=== PATIENT | male | born 1995 | race African-American/Black ===

== ENCOUNTER 2022-03-12 10:21 | Emergency (ER) | payer OTHER ==
[~2022-03-12] VITALS: Ht 180.3 cm; Wt 86.2 kg
--- NOTE | 2022-03-12 10:34 | NUR ---
BIBS, stated back pain lower right side, said he fell of skate board a few days ago & pain has gotten worse not better.
--- NOTE | 2022-03-12 10:56 | NUR ---
PT, VS= B/P = 119/61, RR = 19, HR = 66, o2 = 100 %. pt in room playing video games on cell phone. c/o of pain radiating in lower left side of back and up level 8 out of 0-10.
[2022-03-12] MEDS ORDERED: IBUPROFEN 400 MG TABLET PO ONE (11:00)
[2022-03-12] MEDS ORDERED: CYCLOBENZAPRINE 10 MG TABLET PO ONE (11:00)
[2022-03-12] MEDS ORDERED: CYCLOBENZAPRINE 10 MG TABLET ONE (11:03)
[2022-03-12] MEDS ORDERED: IBUPROFEN 400 MG TABLET ONE (11:04)
[2022-03-12] MEDS ORDERED: CYCL5TAB PO (12:00)
[2022-03-12] MEDS ORDERED: IBUP-1957 PO (12:00)
[2022-03-12 12:21] VITALS: BP 123/70
== END 2022-03-12 12:20 | disposition home or self-care (01) ==
LOC: ER 10:47
DX: S39.012A Strain of muscle, fascia and tendon of lower back, initial encounter (principal); S30.0XXA Contusion of lower back and pelvis, initial encounter; Z79.899 Other long term (current) drug therapy; V00.131A Fall from skateboard, initial encounter; Y93.51 Activity, roller skating (inline) and skateboarding; Y92.89 Other specified places as the place of occurrence of the external cause; Y99.8 Other external cause status

== ENCOUNTER 2023-08-18 12:17 | Emergency (ER) | payer OTHER ==
[~2023-08-18] VITALS: Ht 180.3 cm; Wt 81.6 kg
[~2023-08-18 12:17] MED LIST: CYCL5TAB PO; IBUP-1957 PO
[2023-08-18] MEDS ORDERED: dexaMETHasone SOD PHOSPHATE 10 MG/ML VIAL IV ONE (16:00)
[2023-08-18] MEDS ORDERED: VANCOMYCIN 1 GM in IV D5W 250 ML IV ONE (16:00)
[2023-08-18] MEDS ORDERED: CEFAZOLIN 2 GM in IV D5W 100 ML IV ONE (16:00)
[2023-08-18 16:37] LABS: BASOPHILS % (AUTO) 0.1 % (0.0-2.0); EOSINOPHILS % (AUTO) 0.2 % (0.0-6.0); HEMATOCRIT 41 % (39-51); HEMOGLOBIN 13.7 g/dL (13.5-17.5); LYMPHOCYTES % (AUTO) 16.7 % (20.0-44.0); MEAN CORPUSCULAR HEMOGLOBIN 30 PG (26.0-33.0); MEAN CORPUSCULAR HGB CONC 33 g/dl (31.0-36.0); MEAN CORPUSCULAR VOLUME 89 fL (80-96); MONOCYTES # (AUTO) 0.9 K/uL (0.1-1.30); MONOCYTES % (AUTO) 7.1 % (2.0-12.0); NEUTROPHILS # (AUTO) 9.1 K/uL (1.8-8.9); NEUTROPHILS % (AUTO) 75.9 % (43.0-81.0); PLATELET COUNT (AUTO) 211 K/uL (150-450); RED BLOOD CELL COUNT(AUTO) 4.61 MIL/uL (4.5-6.0); RED CELL DISTRIBUTION WIDTH 13.4 % (11.5-15.0)
[2023-08-18 16:53] LABS: CREATININE 1.2 mg/dL (0.6-1.3); POTASSIUM 3.4 mmol/L (3.5-5.1)
[2023-08-18 16:59] LABS: BILIRUBIN,DIRECT 0.2 mg/dL (0.0-0.2); BILIRUBIN,TOTAL 0.5 mg/dL (0.2-1.0); TOTAL PROTEIN, SERUM 8.2 g/dL (6.4-8.2)
[2023-08-18 17:06] LABS: LACTIC ACID 1.1 mmol/L (0.4-2.0)
[2023-08-18 17:10] LABS: INR 1.07 (0.91-1.10); PROTHROMBIN TIME 11.3 SECS (9.2-11.1)
[2023-08-18] MEDS ORDERED: IOHEXOL-300 100 ML VIAL IV ONE (17:13)
[2023-08-18] MEDS ORDERED: IV NS 0.9% 250 ML IV ONE (17:13)
[2023-08-18] MEDS ORDERED: BICT1TAB PO (17:53)
[2023-08-18] MEDS ORDERED: IBUP-1957 PO (19:09)
[2023-08-18] MEDS ORDERED: CEPH500C2 PO (19:09)
[2023-08-18] MEDS ORDERED: SULF1TAB48 PO (19:09)
[2023-08-18 19:24] VITALS: BP 123/78; TEMP 98.3; O2SAT 97
== END 2023-08-18 19:25 | disposition home or self-care (01) ==
LOC: ER 12:27
DX: M27.2 Inflammatory conditions of jaws (principal); K04.7 Periapical abscess without sinus; R51.9 Headache, unspecified; Z79.899 Other long term (current) drug therapy
CPT/HCPCS: 99285; 96365; 70487; 96375; 96368; 85025; 80048; 87040 ×2; 83605; 80076; 36415; 85730; J0690; J3370; J7060; J7030; J7050; Q9967

== ENCOUNTER 2024-07-03 12:40 | Emergency (ER) | payer OTHER ==
[~2024-07-03] VITALS: Ht 180.3 cm; Wt 79.4 kg
[~2024-07-03 12:40] MED LIST changes: +BICT1TAB PO; +CEPH500C2 PO; -CYCL5TAB PO; +SULF1TAB48 PO
[2024-07-03 13:09] VITALS: TEMP 98.2
[2024-07-03] MEDS ORDERED: KETOROLAC TROMETHAMINE INJ 30 MG/ML VIAL ONE (13:52)
[2024-07-03] MEDS: KETOROLAC TROMETHAMINE INJ 30 MG/ML VIAL IM ONE (13:57)
[2024-07-03] MEDS ORDERED: ACETAMINOPHEN 325 MG TABLET ONE (14:05)
[2024-07-03] MEDS: ACETAMINOPHEN 325 MG TABLET PO ONE (14:08)
[2024-07-03 14:11] LABS: APPEARANCE,URINE CLEAR (CLEAR); BILIRUBIN,URINE NEGATIVE (NEGATIVE); BLOOD, URINE NEGATIVE Ery/uL (NEGATIVE); COLOR,URINE YELLOW (YELLOW); KETONES,URINE NEGATIVE (NEGATIVE); LEUKOCYTE ESTERASE ,URINE NEGATIVE (NEGATIVE); NITRITE, URINE NEGATIVE (NEGATIVE); PH,URINE 6.5 (5.0-8.0); PROTEIN,URINE NEGATIVE (NEGATIVE); UGLUCOSE NEGATIVE (NEGATIVE); UROBILINOGEN,URINE 0.2 EU/dL (0.2)
[2024-07-03] MEDS ORDERED: LEVO500T90 PO (15:45)
[2024-07-03] MEDS ORDERED: LIDOCAINE /MPF 1% VIAL 5 ML VIAL ONE (15:53)
[2024-07-03] MEDS ORDERED: CEFTRIAXONE 500 MG VIAL ONE (15:53)
[2024-07-03] MEDS: CEFTRIAXONE 1 G VIAL IM ONE (16:00)
[2024-07-03 16:12] VITALS: BP 125/70; O2SAT 99
== END 2024-07-03 16:12 | disposition home or self-care (01) ==
LOC: ER 12:44
DX: N50.811 Right testicular pain (principal); F17.200 Nicotine dependence, unspecified, uncomplicated
CPT/HCPCS: 99285; 96372; 76870; 81003; J0696; J3490; J1885

== ENCOUNTER 2024-08-26 18:29 | Emergency (ER) | payer OTHER ==
[~2024-08-26] VITALS: Ht 172.7 cm; Wt 81.6 kg
[~2024-08-26 18:29] MED LIST changes: +LEVO500T90 PO
[2024-08-26] MEDS ORDERED: TDAP [DIPH/PERTUSSIS/TET] 0.5 ML VIAL IM ONE (19:43)
[2024-08-26] MEDS: TDAP [DIPH/PERTUSSIS/TET] 0.5 ML VIAL IM ONE (19:49)
[2024-08-26] MEDS ORDERED: CEPH-570 PO (20:03)
[2024-08-26 20:10] VITALS: BP 119/70; TEMP 98.6; O2SAT 100
== END 2024-08-26 20:23 | disposition home or self-care (01) ==
LOC: ER 18:41
DX: S61.210A Laceration without foreign body of right index finger without damage to nail, initial encounter (principal); F17.200 Nicotine dependence, unspecified, uncomplicated; W26.8XXA Contact with other sharp object(s), not elsewhere classified, initial encounter; Y93.89 Activity, other specified; Y92.89 Other specified places as the place of occurrence of the external cause; Y99.8 Other external cause status
CPT/HCPCS: 90715

== ENCOUNTER 2024-09-16 09:35 | Emergency (ER) | payer OTHER ==
[~2024-09-16] VITALS: Ht 180.3 cm; Wt 79.4 kg
[~2024-09-16 09:35] MED LIST changes: +CEPH-570 PO
[2024-09-16 09:45] VITALS: BP 136/69; TEMP 98.1; O2SAT 99
[2024-09-16] MEDS ORDERED: MUPI1OIN5 TP (10:14)
[2024-09-16] MEDS ORDERED: SULF1TAB48 PO (10:14)
[2024-09-16] MEDS ORDERED: CEPH-570 PO (10:14)
== END 2024-09-16 11:14 | disposition home or self-care (01) ==
LOC: ER 09:39
DX: L03.211 Cellulitis of face (principal); F17.200 Nicotine dependence, unspecified, uncomplicated

== ENCOUNTER 2025-04-19 17:15 | Emergency (ER) | payer OTHER ==
[~2025-04-19] VITALS: Ht 180.3 cm; Wt 81.6 kg
[~2025-04-19 17:15] MED LIST changes: +MUPI1OIN5 TP
[2025-04-19 17:36] VITALS: BP 135/62; TEMP 98
[2025-04-19] MEDS ORDERED: RABIES VACCINE (PCEC)/PF 1 EA KIT IM ONE (18:28)
[2025-04-19] MEDS: RABIES VACCINE (PCEC)/PF 1 EA KIT IM ONE (18:40)
[2025-04-19] MEDS ORDERED: CEPH-570 PO (18:43)
[2025-04-19] MEDS ORDERED: MUPI1OIN5 TP (18:43)
[2025-04-19] MEDS ORDERED: BICT1TAB PO (18:43)
[2025-04-19 19:02] VITALS: O2SAT 99
== END 2025-04-19 19:03 | disposition home or self-care (01) ==
LOC: ER 18:04
DX: S51.831D Puncture wound without foreign body of right forearm, subsequent encounter (principal); F17.200 Nicotine dependence, unspecified, uncomplicated; R22.30 Localized swelling, mass and lump, unspecified upper limb; Z59.00 Homelessness unspecified; Z79.2 Long term (current) use of antibiotics; Z23 Encounter for immunization; W54.0XXD Bitten by dog, subsequent encounter